=== PATIENT | female | born 1990 | race Caucasian/White ===

== ENCOUNTER 2020-04-11 12:59 | Emergency (ER) | payer OTHER ==
[~2020-04-11] VITALS: Ht 162.6 cm; Wt 72.6 kg
[2020-04-11 13:02] VITALS: BP 129/89
--- NOTE | 2020-04-11 13:08 | NUR ---
BIBA TO BED 9.
--- NOTE | 2020-04-11 13:12 | NUR ---
HOMELESS. BIBA C/O INTERMITENT MID ABDOMINAL PAIN, N/V X 6 WEEKS. ABDOMEN SOFT, NON TENDER AT THIS TIME. LAST BM 2 DAYS AGO. LMP 02/07/20..MED HX: BIPOLAR. SKIN IS PINK/WARM/DRY; AAOX4 WITH EVEN AND STEADY GAIT; LUNGS CLEAR BL; HR EVEN AND REGULAR; PT DENIES ANY FEVER, CP, SOB, OR COUGH AT THIS TIME; PATIENT STATES PAIN OF 8/10 AT THIS TIME. PATIENT POSITIONED FOR COMFORT; HOB ELEVATED; BEDRAILS UP X1; BED DOWN. ER MADE AWARE OF PT STATUS. Addendum: 04/11/20 at 1324 by [email or web address] PT STATED SHE LIVES WITH HER MOTHER.
--- NOTE | 2020-04-11 13:55 | NUR ---
dr santos at bedside evaluating pt.
--- NOTE | 2020-04-11 14:09 | NUR ---
pt to ctscan via wheelchair.
--- NOTE | 2020-04-11 14:17 | NUR ---
PT BACK FROM [facility] VIA [facility].
--- NOTE | 2020-04-11 14:20 | NUR ---
LAB AT BEDSIDE.
[2020-04-11 14:31] LABS: BASOPHILS % (AUTO) 0.4 % (0.0-2.0); EOSINOPHILS # (AUTO) 0.1 K/uL (0-0.4); HEMATOCRIT 38.9 % (36-48); HEMOGLOBIN 12.7 g/dL (12.0-16.0); LYMPHOCYTES # (AUTO) 2.2 K/uL (2.5-16.5); LYMPHOCYTES % (AUTO) 22.7 % (20.5-51.1); MEAN CORPUSCULAR HEMOGLOBIN 29 pg (27-31); MEAN CORPUSCULAR HGB CONC 33 g/dL (33-37); MONOCYTES % (AUTO) 10.2 % (1.7-9.3); NEUTROPHILS # (AUTO) 6.4 K/uL (1.8-7.7); NEUTROPHILS % (AUTO) 65.7 % (42.2-75.2); PLATELET COUNT (AUTO) 327 K/uL (140-450); RED BLOOD CELL COUNT(AUTO) 4.37 MIL/uL (4.20-5.40); RED CELL DISTRIBUTION WIDTH 12.8 % (11.6-13.7); WHITE BLOOD COUNT (AUTO) 9.7 K/uL (4.8-10.8)
[2020-04-11 14:49] LABS: ALBUMIN 3.4 g/dL (3.4-5.0); ANION GAP 12.2 (8-16); CARBON DIOXIDE 28.2 mmol/L (21-32); CREATININE 0.8 mg/dL (0.6-1.3); POTASSIUM 3.4 mmol/L (3.5-5.1); TOTAL BILIRUBIN 0.2 mg/dL (0.0-1.0)
[2020-04-11 15:06] VITALS: BP 129/89
--- NOTE | 2020-04-11 15:07 | NUR ---
Patient discharged with v/s stable. Written and verbal after care instructions given and explained regarding abdominal pain. Patient alert, oriented and verbalized understanding of instructions. Ambulatory with steady gait. All questions addressed prior to discharge. ID band removed. Patient advised to follow up with PMD. Rx of naprosyn given. Patient educated on indication of medication including possible reaction and side effects. Opportunity to ask questions provided and answered.
== END 2020-04-11 15:07 | disposition home or self-care (01) ==
LOC: MED 12:59
DX: R10.33 Periumbilical pain (principal)
CPT/HCPCS: 36415; 80053; 81002; 81025; 83690; 85025; 99284

== ENCOUNTER 2020-04-18 14:01 | Emergency (ER) | payer OTHER ==
[~2020-04-18] VITALS: Ht 162.6 cm; Wt 73.5 kg
[2020-04-18 14:05] VITALS: BP 116/69
--- NOTE | 2020-04-18 14:18 | NUR ---
APATIENT BIBA, PATIENT IS HOMELESS PRESENTS TO ED WITH ABDOMINAL PAIN RADIATING TO LOWER BACK X2 DAYS . PT STATES SHE HAS NOT HAD A BOWEL MOVEMENT IN 4 WEEKS, DENIES ANY DYSURIA . N/V PRESENT; SKIN IS PINK/WARM/DRY; AAOX4 WITH EVEN AND STEADY GAIT; LUNGS CLEAR BL; HR EVEN AND REGULAR; PT DENIES ANY FEVER, CP, SOB, OR COUGH AT THIS TIME; PATIENT STATES PAIN OF 8/10 AT THIS TIME; VSS; PATIENT POSITIONED FOR COMFORT; HOB ELEVATED; BEDRAILS UP X2; BED DOWN. ER MD MADE AWARE OF PT STATUS.
[2020-04-18] MEDS ORDERED: ACETAMINOPHEN 325 MG TAB PO ONE (14:35)
[2020-04-18] MEDS ORDERED: FAMOTIDINE 20 MG TAB PO ONE (14:35)
[2020-04-18] MEDS ORDERED: ALUMINUM HYD/MAG/SIMETHICONE 30 ML UDC PO ONE (14:35)
[2020-04-18] MEDS ORDERED: ONDANSETRON 4 MG ODT PO ONE (14:55)
[2020-04-18 15:11] LABS: BASOPHILS # (AUTO) 0.1 K/uL (0.00-0.22); BASOPHILS % (AUTO) 0.7 % (0.0-2.0); EOSINOPHILS # (AUTO) 0.1 K/uL (0-0.4); EOSINOPHILS % (AUTO) 0.6 % (0.0-4.0); HEMATOCRIT 39.9 % (36-48); HEMOGLOBIN 13.3 g/dL (12.0-16.0); LYMPHOCYTES # (AUTO) 2.1 K/uL (2.5-16.5); LYMPHOCYTES % (AUTO) 22.4 % (20.5-51.1); MEAN CORPUSCULAR HEMOGLOBIN 29 pg (27-31); MEAN CORPUSCULAR HGB CONC 33 g/dL (33-37); MEAN CORPUSCULAR VOLUME 88.5 fL (80-94); MONOCYTES # (AUTO) 0.7 K/uL (0.8-1.0); MONOCYTES % (AUTO) 7.1 % (1.7-9.3); NEUTROPHILS # (AUTO) 6.6 K/uL (1.8-7.7); NEUTROPHILS % (AUTO) 69.2 % (42.2-75.2); PLATELET COUNT (AUTO) 308 K/uL (140-450); RED BLOOD CELL COUNT(AUTO) 4.51 MIL/uL (4.20-5.40); RED CELL DISTRIBUTION WIDTH 13.1 % (11.6-13.7); WHITE BLOOD COUNT (AUTO) 9.6 K/uL (4.8-10.8)
[2020-04-18 15:36] LABS: ALBUMIN 3.7 g/dL (3.4-5.0); ANION GAP 13.9 (8-16); CARBON DIOXIDE 25.4 mmol/L (21-32); CREATININE 0.8 mg/dL (0.6-1.3); POTASSIUM 3.3 mmol/L (3.5-5.1); TOTAL BILIRUBIN 0.5 mg/dL (0.0-1.0)
--- NOTE | 2020-04-18 16:30 | NUR ---
Patient discharged with v/s stable. Written and verbal after care instructions given and explained. Patient alert, oriented and verbalized understanding of instructions. Ambulatory with steady gait. All questions addressed prior to discharge. ID band removed. Patient advised to follow up with PMD. Rx of ZOFRAN, PEPCID, MIRALAX given. Patient educated on indication of medication including possible reaction and side effects. Opportunity to ask questions provided and answered.
[2020-04-18 16:31] VITALS: BP 121/71
== END 2020-04-18 16:30 | disposition home or self-care (01) ==
LOC: MED 14:01
DX: K29.70 Gastritis, unspecified, without bleeding (principal); Z98.890 Other specified postprocedural states
CPT/HCPCS: 36415; 74021; 80053; 81002; 81025; 83690; 85025; 99284; Q0162

== ENCOUNTER 2020-05-17 00:57 | Emergency (ER) | payer OTHER ==
[~2020-05-17] VITALS: Ht 162.6 cm; Wt 72.6 kg
--- NOTE | 2020-05-17 00:58 | NUR ---
biba to bed 06
[2020-05-17 01:00] VITALS: BP 121/70
--- NOTE | 2020-05-17 01:02 | NUR ---
30 Y/O F, BIBA WITH C/O LEFT ANKLE PAIN. PT REPORTS FEELING DIZZY AND LOST BALANCE AND TWISTED ANKLE. PT IS TRANSIENT, REPORTS STAYING EITHER AT A MOTEL OR BUS STATION. PAIN DOES NOT RADIATE, 02/13. NO VISIBLE DEFORMITY OR SWELLING. ABLE TO ROTATE ANKLE SLIGHTLY. SIDERAILS UP x2, BED LOCKED AND IN LOWEST POSITION. NO DISTRESS NOTED. [facility]A MED HX: BIPOLAR
--- NOTE | 2020-05-17 01:09 | NUR ---
X-Ray at bedside.
--- NOTE | 2020-05-17 01:18 | NUR ---
Dr. Aquino examining patient.
--- NOTE | 2020-05-17 01:24 | NUR ---
PT AMBULATED TO AND FROM RESTROOM WITHOUT INCIDENT. STEADY GAIT, ABLE TO AMBULATE WITHOUT ASSISTANCE.
[2020-05-17] MEDS ORDERED: IBUPROFEN 800 MG TAB PO ONE (01:25)
--- NOTE | 2020-05-17 01:29 | NUR ---
PT L ANKLE WRAPPED WITH ILENE WRAP. +CSM
--- NOTE | 2020-05-17 01:30 | NUR ---
PT GIVEN INSTRUCTION ON PROPER USE OF CRUTCHES. FITTED TO PT HEIGHT AND ARM LENGTH. PT DEMONSTRATED SAFE USE FOR APPROXIMATELY 40 FEET, PT STATED SHE FELT COMFORTABLE WITH USE
--- NOTE | 2020-05-17 01:35 | NUR ---
PT PROVIDED A SANDWICH, CRACKERS, JUICE AND PUDDING.
--- NOTE | 2020-05-17 03:01 | NUR ---
PT RESTING WELL IN BED, ABLE TO SELF TURN. ON ROOM AIR, NO SIGNS OF DISTRESS NOTED.
--- NOTE | 2020-05-17 05:07 | NUR ---
PT IN BED, EYES CLOSED, VISIBLE CHEST RISE AND FALL. ALL VITALS WITHIN RANGE. NO DISTRESS NOTED.
[2020-05-17 05:12] VITALS: BP 132/66
--- NOTE | 2020-05-17 06:00 | NUR ---
PT IN STABLE CONDITION, DENIES PAIN. PROVIDED WITH BUS PASS AND MEAL.
--- NOTE | 2020-05-17 06:21 | NUR ---
Patient discharged with v/s stable. Written and verbal after care instructions given and explained. Patient alert, oriented and verbalized understanding of instructions. Ambulatory with steady gait. All questions addressed prior to discharge. ID band removed. Patient advised to follow up with PMD. Rx of MOTRIN given. Patient educated on indication of medication including possible reaction and side effects. Opportunity to ask questions provided and answered. PT STABLE, DENIES PAIN.
== END 2020-05-17 06:21 | disposition home or self-care (01) ==
LOC: MED 00:57
DX: S93.402A Sprain of unspecified ligament of left ankle, initial encounter (principal); Y08.89XA Assault by other specified means, initial encounter; Y93.89 Activity, other specified; Y92.89 Other specified places as the place of occurrence of the external cause; Y99.8 Other external cause status
CPT/HCPCS: 73610; 99283